=== PATIENT | male | born 1990 | race Caucasian/White ===

== ENCOUNTER 2018-11-20 09:35 | Emergency (ER) | payer BC, OTHER ==
[2018-11-20] MEDS ORDERED: Sodium Chloride 0.9% 10 ML Syringe FLUSH PRN (10:13)
[2018-11-20] MEDS ORDERED: cefTRIAXone 2 GM in Sodium Chloride 0.9% 100 ML IV SCH (10:15)
[2018-11-20] MEDS ORDERED: Dexamethasone 4 MG/ML SDV IVPUSH ONE (10:16)
--- NOTE | 2018-11-20 10:17 | EDM.PDOC ---
ED HPI GENERAL MEDICAL PROBLEM - General Chief Complaint: ENT Problem Stated Complaint: SWOLLEN THROAT Time Seen by Provider: 11/20/18 10:12 Source of Information: Reports: Patient History Limitations: Reports: No Limitations - History of Present Illness INITIAL COMMENTS - FREE TEXT/NARRATIVE: 27-year-old male sent to the ED from [facility] due to feeling of something obstructing his airway and throat. Patient states he woke up with this sensation. No associated fever or chills. Denies any significant pain with swallowing. States he has a youngster at home with RSV virus infection. He denies cough or sputum production. Onset: Today Onset Date: 11/20/18 Onset Time: 06:30 Duration: Hour(s): Location: Reports: Neck (Feeling of swelling in his throat particularly on the right side.) Quality: Reports: Ache, Pressure Severity: Moderate Improves with: Reports: None Worsens with: Reports: Other Context: Reports: Other (Awoke with symptoms this morning). Denies: Activity, Exercise, Lifting (Swallowing), Sick Contact, Trauma Associated Symptoms: Reports: No Other Symptoms. 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 (see below) (None.) Throat Pain Score (Numeric/FACES): 2 - Related Data Allergies Allergy/AdvReac Type Severity Reaction Status Date / Time No Known Allergies Allergy Verified 11/20/18 09:53 Home Meds: Home Meds Amoxicillin/Clavulanate K [Augmentin 500-125 MG] 1 tab PO BID #18 tablet [Rx] Cyclobenzaprine [Flexeril] 5 mg PO TID PRN 11/20/18 [History] Desonide [Desowen] 1 applic TOP BID 11/20/18 [History] Multivitamin [Multivitamins] 1 cap PO DAILY 11/20/18 [History] traMADol [Ultram] 50 mg PO DAILY PRN 11/20/18 [History] Past Medical History - Past Health History Medical/Surgical History: Denies Medical/Surgical History Gastrointestinal History: Reports: GERD Genitourinary History: Reports: Renal Calculus Musculoskeletal History: Reports: Other (See Below) Other Musculoskeletal History: Planter facitis Psychiatric History: Reports: Anxiety Social & Family History - Tobacco Use Smoking Status *Q: Former Smoker Used Tobacco, but Quit: Yes Month/Year Tobacco Last Used: 01/2017 - Caffeine Use Caffeine Use: Reports: None - Alcohol Use Number of Drinks Per Day: 2 - Recreational Drug Use Recreational Drug Use: No - Living Situation & Occupation Living situation: Reports: Occupation: Employed ED ROS ENT - Review of Systems Review Of Systems: See Below Constitutional: Denies: Fever, Chills, Malaise, Weakness, Fatigue, Decreased Appetite, Weight Loss HEENT: Reports: Throat Pain, Throat Swelling (Feeling like there is a foreign body in his throat) Respiratory: Reports: No Symptoms Cardiovascular: Reports: No Symptoms Endocrine: Reports: No Symptoms GI/Abdominal: Reports: No Symptoms : Reports: No Symptoms Musculoskeletal: Reports: No Symptoms Skin: Reports: No Symptoms Neurological: Reports: No Symptoms Psychiatric: Reports: No Symptoms Hematologic/Lymphatic: Reports: No Symptoms Immunologic: Reports: No Symptoms ED EXAM, ENT - Physical Exam Exam: See Below Exam Limited By: No Limitations General Appearance: Alert, WD/WN, No Apparent Distress, Other (Temperatures 37.1. Pulse ox is 97% on room air. BP mildly elevated 141/94 with respiratory to 20.) Eye Exam: Bilateral Eye: Normal Inspection Ears: Other Mouth/Throat: Tonsillar Erythema (Right side right side), Tonsillar Exudates, Tonsillar Swelling (He has right-sided tonsillar swelling with exudate and erythema. This erythema spreads to involve the soft palate and uvula. The left side does not appear to be involved.) Head: Atraumatic, Normocephalic Neck: Normal Inspection, Supple, Non-Tender, Full Range of Motion. No: Lymphadenopathy (L), Lymphadenopathy (R) Respiratory/Chest: No Respiratory Distress, Lungs Clear, Normal Breath Sounds, No Accessory Muscle Use, Chest Non-Tender, Respiratory Distress Cardiovascular: Normal Peripheral Pulses, Regular Rate, Rhythm, No Edema, No Gallop, No Murmur (Mild tachypnea at rest 20/m.), No Rub Extremities: Normal Inspection, Normal Range of Motion, Non-Tender, No Pedal Edema Neurological: Alert, Oriented, CN II-XII Intact, Normal Cognition Psychiatric: Normal Affect, Normal Mood Skin: Warm, Dry, Intact, Normal Color, No Rash Course - Vital Signs Last Recorded V/S: Last Vital Signs Temp 37.1 C 11/20/18 09:56 Pulse 87 11/20/18 09:56 Resp 20 11/20/18 09:56 BP 141/94 H 11/20/18 09:56 Pulse Ox 97 11/20/18 09:56 - Orders/Labs/Meds Orders: Active Orders 24 hr Category Date Time Status Peripheral IV Care [RC] . DIRECTED Care 11/20/18 10:13 Active STREP SCRN A RAPID W CULT CONF [RM] Stat Lab 11/20/18 11:20 Results Sodium Chloride 0.9% [Saline Flush] Med 11/20/18 10:13 Active 10 ml FLUSH ASDIRECTED PRN cefTRIAXone [Rocephin] 2 gm Med 11/20/18 10:15 Active Sodium Chloride 0.9% [Normal Saline] 100 ml IV Q24H Peripheral IV Insertion Adult [OM.PC] Stat Oth 11/20/18 10:13 Ordered Medication Orders Ceftriaxone Sodium 2 gm/ (Sodium Chloride) 100 mls @ 200 mls/hr IV Q24H [facility] Last Admin: 11/20/18 10:58 Dose: 200 mls/hr Sodium Chloride (Saline Flush) 10 ml FLUSH ASDIRECTED PRN PRN Reason: Keep Vein Open Last Admin: 11/20/18 10:54 Dose: 10 ml Labs: Laboratory Tests 11/20/18 11/20/18 Range/Units 11:00 11:00 WBC 9.12 H (4.23-9.07) K/mm3 RBC 5.11 (4.63-6.08) M/mm3 Hgb 15.4 (13.7-17.5) gm/L Hct 45.2 (40.1-51.0) % MCV 88.5 (79.0-92.2) fl MCH 30.1 (25.7-32.2) pg MCHC 34.1 (32.2-35.5) g/dl RDW Std Deviation 42.5 (35.1-43.9) fL Plt Count 206 (163-337) K/mm3 MPV 9.5 (9.4-12.3) fl Neutrophils % (Manual) 74 H (40-60) % Band Neutrophils % 0 (0-10) % Lymphocytes % (Manual) 18 L (20-40) % Atypical Lymphs % 0 % Monocytes % (Manual) 7 (2-10) % Eosinophils % (Manual) 1 (0.8-7.0) % Basophils % (Manual) 0 L (0.2-1.2) Toxic Granulation 1+ slight Platelet Estimate Adequate RBC Morph Comment Normal Sodium 138 (136-145) mEq/L Potassium 3.9 (3.5-5.1) mEq/L Chloride 103 (98-107) mEq/L Carbon Dioxide 27 (21-32) mEq/L Anion Gap 11.9 (5-15) BUN 11 (7-18) mg/dL Creatinine 1.0 (0.7-1.3) mg/dL Est Cr Clr Drug Dosing 113.56 mL/min Estimated GFR (MDRD) > 60 (>60) mL/min BUN/Creatinine Ratio 11.0 L (14-18) Glucose 97 (74-106) mg/dL Calcium 9.1 (8.5-10.1) mg/dL Total Bilirubin 0.4 (0.2-1.0) mg/dL AST 21 (15-37) U/L ALT 45 (16-63) U/L Alkaline Phosphatase 63 (46-116) U/L C-Reactive Protein 1.9 H* (<1.0) mg/dL Total Protein 7.1 (6.4-8.2) g/dl Albumin 3.6 (3.4-5.0) g/dl Globulin 3.5 gm/dL Albumin/Globulin Ratio 1.0 (1-2) Meds: Medications Generic Name Dose Route Start Last Admin Trade Name Freq PRN Reason Stop Dose Admin Ceftriaxone Sodium 2 gm/ 100 mls @ 200 mls/hr 11/20/18 10:15 11/20/18 10:58 Sodium Chloride IV 200 mls/hr Q24H JAMSHID Administration Sodium Chloride 10 ml 11/20/18 10:13 11/20/18 10:54 Saline Flush FLUSH 10 ml ASDIRECTED PRN Administration Keep Vein Open Discontinued Medications Generic Name Dose Route Start Last Admin Trade Name Freq PRN Reason Stop Dose Admin Dexamethasone 10 mg 11/20/18 10:16 11/20/18 10:58 Dexamethasone IVPUSH 11/20/18 10:17 10 mg ONETIME ONE Administration - Radiology Interpretation Free Text/Narrative:: 19-year-old male presents to the ED with a foreign body sensation in his throat. He feels like it's goal open his throat since he awoke this morning. He denies any real pain with swallowing. He states was fine when he went to bed last night. On examination he is showing evidence of pharyngitis involving mostly the soft palate and uvula on the right side he shows evidence of a right- sided tonsillitis with exudate. Left tonsil is minimally erythematous without exudate. Significant lymphadenopathy bilaterally. Lungs are clear. O2 sats are normal although he is tachypneic at 20/m. Plan routine labs to be performed. IV saline lock. Will be given Rocephin 2 g IV. We'll also give him dexamethasone 10 mg IV to help reduce the swelling. Clinically there is no evidence of a peritonsillar abscess. - Re-Assessments/Exams Free Text/Narrative Re-Assessment/Exam: 11/20/18 11:47 white count is 9.42 with 74% neutrophils and no band cells reported. Hemoglobin is normal. Chemistry is normal at the nose slightly elevated CRP at 1.9. Patient has completed Rocephin 2 g intravenously. Is also been given 10 mg of dexamethasone to reduce the swelling. He'll be discharged home on Augmentin 500 mg/125 mg one tablet twice a day for the next 9 days. First tablet to be taken tonight before bed. Motrin 600 mg every 6 hours needed to help reduce inflammation and or fever and/or pain. 11/20/18 12:12 she reports she's feeling much better he can now swallow without any discomfort at the time of discharge. Follow-up as needed. Departure - Departure Time of Disposition: 12:12 Disposition: Home, Self-Care 01 Condition: Fair Clinical Impression: Tonsillitis - Discharge Information *PRESCRIPTION DRUG MONITORING PROGRAM REVIEWED*: Not Applicable *COPY OF PRESCRIPTION DRUG MONITORING REPORT IN PATIENT YUNG: Not Applicable Prescriptions: Amoxicillin/Clavulanate K [Augmentin 500-125 MG] 1 tab PO BID #18 tablet Instructions: Tonsillitis, [id number] Referrals: PCP,None [Primary Care Provider] - Forms: ED Department Discharge Additional Instructions: Evaluation the emergent today in regards to development of swelling in your throat overnight. Examination reveals swelling and inflammation of the uvula and soft palate and beginnings of right-sided tonsillitis. You're therefore treated with intravenous antibiotics Rocephin 2 g and received dexamethasone 10 mg as well to help reduce the swelling. White blood cell count was still within the normal range. Inflammatory markers are only mildly elevated. Treatment at home is to continue Motrin 600 mg as needed for reduction of pressure pain and/ or fever relief. Antibiotic Augmentin 500/125 mg twice daily for the next 9 days with first tablet to be taken at bedtime tonight. Follow-up if any further problems occur in the next 48 hours. - My Orders Last 24 Hours: My Active Orders 11/20/18 10:13 Peripheral IV Care [RC] . DIRECTED Sodium Chloride 0.9% [Saline Flush] 10 ml FLUSH ASDIRECTED PRN Peripheral IV Insertion Adult [OM.PC] Stat 11/20/18 10:15 cefTRIAXone [Rocephin] 2 gm Sodium Chloride 0.9% [Normal Saline] 100 ml IV Q24H 11/20/18 11:20 STREP SCRN A RAPID W CULT CONF [RM] Stat - Assessment/Plan Last 24 Hours: My Active Orders 11/20/18 10:13 Peripheral IV Care [RC] . DIRECTED Sodium Chloride 0.9% [Saline Flush] 10 ml FLUSH ASDIRECTED PRN Peripheral IV Insertion Adult [OM.PC] Stat 11/20/18 10:15 cefTRIAXone [Rocephin] 2 gm Sodium Chloride 0.9% [Normal Saline] 100 ml IV Q24H 11/20/18 11:20 STREP SCRN A RAPID W CULT CONF [RM] Stat
== END 2018-11-20 12:21 | disposition home or self-care (01) ==
LOC: JD.ED 09:35
DX: J03.90 Acute tonsillitis, unspecified (principal); Z87.891 Personal history of nicotine dependence; Z79.899 Other long term (current) drug therapy
CPT/HCPCS: 36415; 80053; 85007; 85027; 86140; 87081; 87430; 96365; 96375; 99283; J0696; J1100; J7030; 99284

== ENCOUNTER 2020-02-16 21:45 | Emergency (ER) | payer OTHER ==
[2020-02-16] MEDS ORDERED: Morphine 4 MG/ML Syringe IVPUSH STA (22:13)
[2020-02-16] MEDS: Lactated Ringers 1,000 ML IV SCH (22:24)
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
[2020-02-16] MEDS ORDERED: Ondansetron 4 MG/2 ML SDV IVPUSH ONE (22:59)
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
[2020-02-17] MEDS: Lactated Ringers 1,000 ML IV SCH (00:05)
[2020-02-17] MEDS ORDERED: HYDROmorphone 0.5 MG/0.5 ML Syringe IVPUSH ONE (00:07)
--- NOTE | 2020-02-17 07:31 | CR ---
Right hand: 4 views of the right hand were obtained. Comparison: No previous hand study. Joint spaces are preserved. No fracture, dislocation or other bony abnormality is appreciated. Impression: 1. Nothing acute is appreciated is appreciated on right hand exam. Diagnostic code #1 This report was dictated in MDT
--- NOTE | 2020-02-17 07:31 | CR ---
Chest: Portable supine view of the chest was obtained. Comparison: No prior chest imaging. Heart size and mediastinum are normal. Lungs are clear with no acute parenchymal change. Bony structures are grossly intact. Impression: 1. Nothing acute is seen on supine chest x-ray. Diagnostic code #1 This report was dictated in MDT
== END 2020-02-17 00:35 ==
LOC: JD.ED 21:45
DX: S60.511A Abrasion of right hand, initial encounter (principal); R07.9 Chest pain, unspecified; F10.129 Alcohol abuse with intoxication, unspecified; F12.90 Cannabis use, unspecified, uncomplicated; V89.2XXA Person injured in unspecified motor-vehicle accident, traffic, initial encounter
CPT/HCPCS: 36415; 71045; 73130; 80053; 80306; 80307; 85007; 85027; 85610; 85730; 93005; 96361; 96374; 96375; 99285; J1170; J2270; J2405; J7120; 93010